=== PATIENT | male | born 1970 | race Caucasian/White ===

== ENCOUNTER 2022-03-15 01:46 | Emergency (ER) | payer OTHER ==
[~2022-03-15 01:46] MED LIST: CERTAGEN1 EACH PO; CLARITIN10 MG PO; COZAAR 25MG TAB25 MG PO; LEXAPRO20 MG PO; LOVAZA1 GM PO; MELOXICAM15 MG PO; TENORMIN50 MG PO; VITAMIN D400 UNI2 PO
[2022-03-15] MEDS ORDERED: PERCOCET 5-3251 EACH PO (03:35)
== END 2022-03-15 04:00 | disposition home or self-care (01) ==
LOC: FER 01:46
DX: S43.014A Anterior dislocation of right humerus, initial encounter (principal); I48.91 Unspecified atrial fibrillation; Z79.01 Long term (current) use of anticoagulants; W19.XXXA Unspecified fall, initial encounter; Y92.009 Unspecified place in unspecified non-institutional (private) residence as the place of occurrence of the external cause
CPT/HCPCS: 73020; 73030; 96374; J3010